=== PATIENT | male | born 1975 | race African-American/Black ===

== ENCOUNTER 2016-11-16 15:32 | Emergency (ER) | payer OTHER ==
[~2016-11-16] VITALS: Ht 180.3 cm; Wt 95.0 kg
[~2016-11-16 15:32] MED LIST: AMOXICILLIN500 MG PO; CONZIP100 MG PO; NO HOME MEDS; PENICILLN VK500 MG PO; ULTRAM50 M1 PO
[2016-11-16] MEDS ORDERED: ULTRAM50 M1 PO (17:06)
[2016-11-16 17:12] VITALS: BP 151/76
== END 2016-11-16 17:15 | disposition home or self-care (01) | DRG 552 ==
LOC: ED 15:32
DX: M54.2 Cervicalgia (principal); M54.6 Pain in thoracic spine; S20.212A Contusion of left front wall of thorax, initial encounter; V59.49XA Driver of pick-up truck or van injured in collision with other motor vehicles in traffic accident, initial encounter; Y92.413 State road as the place of occurrence of the external cause

== ENCOUNTER 2018-02-08 10:08 | Emergency (ER) | payer OTHER ==
[~2018-02-08] VITALS: Ht 180.3 cm; Wt 96.6 kg
[2018-02-08] MEDS ORDERED: MOTRIN400 MG PO (12:22)
[2018-02-08 12:23] VITALS: BP 132/78
== END 2018-02-08 12:23 | disposition home or self-care (01) | DRG 103 ==
LOC: ED 10:08
DX: G43.909 Migraine, unspecified, not intractable, without status migrainosus (principal); Z96.7 Presence of other bone and tendon implants; R42 Dizziness and giddiness; R51 Headache

== ENCOUNTER 2019-05-03 13:10 | Emergency (ER) | payer OTHER ==
[~2019-05-03] VITALS: Ht 180.3 cm; Wt 100.0 kg
[~2019-05-03 13:10] MED LIST changes: +MOTRIN400 MG PO
[2019-05-03 15:18] VITALS: BP 172/66
== END 2019-05-03 15:26 | disposition home or self-care (01) ==
LOC: ED 13:10
DX: R51 Headache (principal)

== ENCOUNTER 2020-01-10 | Emergency (ER) | payer OTHER ==
[2020-01-10] MEDS ORDERED: GENTAMICIN SULF5 ML OS ×2 (22:31)
== END 2020-01-10 22:50 | disposition home or self-care (01) ==
DX: T15.02XA Foreign body in cornea, left eye, initial encounter (principal); X58.XXXA Exposure to other specified factors, initial encounter; Y93.89 Activity, other specified

== ENCOUNTER 2020-03-27 19:47 | Emergency (ER) | payer OTHER ==
[~2020-03-27] VITALS: Ht 180.3 cm; Wt 94.1 kg
[~2020-03-27 19:47] MED LIST changes: +GENTAMICIN SULF5 ML OS
[2020-03-27] MEDS ORDERED: GENTAMICIN0.3 % OS (20:43)
[2020-03-27 20:57] VITALS: BP 148/89
== END 2020-03-27 20:57 | disposition home or self-care (01) ==
LOC: ED 19:47
DX: S05.02XA Injury of conjunctiva and corneal abrasion without foreign body, left eye, initial encounter (principal); H10.9 Unspecified conjunctivitis; H01.004 Unspecified blepharitis left upper eyelid; X58.XXXA Exposure to other specified factors, initial encounter

== ENCOUNTER 2021-06-28 18:18 | Emergency (ER) | payer OTHER ==
[~2021-06-28] VITALS: Ht 180.3 cm; Wt 95.2 kg
[~2021-06-28 18:18] MED LIST changes: +GENTAMICIN0.3 % OS
[2021-06-28 18:55] LABS: IMMATURE GRANULOCYTES 0.1 % (0.0-5.0); MEAN CELL VOLUME 93.8 fL CALC (80.0-100.0); MEAN CORPUSCULAR HGB 31.1 pG CALC (26.0-32.0); MEAN CORPUSCULAR HGB CONC 33.2 g/dL CAL (32.0-36.0); NEUT# 8.57 thou/uL (1.82-7.42); RED BLOOD COUNT 4.85 mill/uL (4.70-6.10); RED CELL DISTRI WIDTH 13.3 % (11.5-15.5)
[2021-06-28 18:56] LABS: HEMATOCRIT 45.5 % (39.0-50.0); HEMOGLOBIN 15.1 g/dl (14.0-18.0)
[2021-06-28 18:58] LABS: URINE BILIRUBIN - DIPSTICK NEGATIVE (NEGATIVE); URINE BLOOD DIPSTICK NEGATIVE (NEGATIVE); URINE COLOR YELLOW; URINE GLUCOSE - DIPSTICK NEGATIVE (NEGATIVE); URINE KETONE NEGATIVE (NEGATIVE); URINE LEUK ESTERASE NEGATIVE (NEGATIVE); URINE PROTEIN - DIPSTICK NEGATIVE (NEG-TRACE); URINE SPECIFIC GRAVITY >=1.030; URINE UROBILINOGEN - DIPSTICK 0.2 E.U./dL (0.2)
[2021-06-28 18:59] LABS: URINE NITRITE - DIPSTICK NEGATIVE (Negative)
[2021-06-28 19:09] LABS: ALBUMIN 4.6 g/dL (3.2-5.0); ALKALINE PHOSPHATASE 79 u/l (38-126); ANION GAP 16 (6-22 (CALC)); BUN 29 mg/dL (9-20); BUN/CREATININE RATIO 21 (12-20 (CALC)); CARBON DIOXIDE 25 mmol/l (22-30); CHLORIDE 103 mmol/l (95-108); CREATININE 1.4 mg/dL (0.7-1.3); GFR 55 ML/MIN (>=60 (CALC)); GFR FOR AFR.AMER. > 60 ML/MIN (>=60 (CALC)); POTASSIUM 3.9 mmol/l (3.5-5.1); SGOT/AST 39 u/l (17-59); SODIUM 140 mmol/l (137-146); TOTAL PROTEIN 8.8 g/dL (6.3-8.2)
[2021-06-28 19:10] LABS: BILIRUBIN, TOTAL 1.2 mg/dL (0.0-1.4)
[2021-06-28] MEDS ORDERED: ZOFRAN4 MG/TAB PO (19:48)
[2021-06-28 19:50] VITALS: BP 127/72
== END 2021-06-28 19:58 | disposition home or self-care (01) ==
LOC: ED 18:18
DX: R51.9 Headache, unspecified (principal); I10 Essential (primary) hypertension; Z86.79 Personal history of other diseases of the circulatory system; R79.89 Other specified abnormal findings of blood chemistry; Z20.822 Contact with and (suspected) exposure to COVID-19